=== PATIENT | male | born 1945 | race Caucasian/White ===

== ENCOUNTER 2022-12-11 14:37 | Inpatient (IN) ==
[2022-12-11] MEDS: Memantine XR 7 mg CAP PO SCH (17:48)
[2022-12-11] MEDS: Polyethylene Glycol 3350 17 GM PACKET PO SCH (17:49)
[2022-12-11] MEDS ORDERED: Senna TAB 8.6 mg TAB PO SCH (18:01)
[2022-12-11 18:03] LABS: Rapid COVID-19 Molecular Undetected (Undetected)
[2022-12-11] MEDS: Senna TAB 8.6 mg TAB PO SCH (21:06)
[2022-12-12] MEDS: Memantine XR 7 mg CAP PO SCH (08:43)
[2022-12-12] MEDS: Polyethylene Glycol 3350 17 GM PACKET PO SCH (08:43)
[2022-12-12] MEDS: Senna TAB 8.6 mg TAB PO SCH (20:43)
[2022-12-13] MEDS: Polyethylene Glycol 3350 17 GM PACKET PO SCH (08:21)
[2022-12-13] MEDS: Memantine XR 7 mg CAP PO SCH (08:21)
[2022-12-13 14:46] VITALS: BP 122/68
[2022-12-13 15:06] LABS: Rapid COVID-19 Molecular Undetected (Undetected)
== END 2022-12-13 16:15 | DRG 690 ==
LOC: MEDTELE 14:37 → SUATTDRO 14:37
PROVIDERS: ADMIT Internal Medicine; ATTEND Internal Medicine